=== PATIENT | male | born 1945 | race Caucasian/White ===

== ENCOUNTER 2016-10-09 11:56 | Inpatient (IN) | payer OTHER ==
[~2016-10-09] VITALS: Ht 182.9 cm; Wt 72.3 kg
[2016-10-09 11:56] VITALS: BP 115/72
[~2016-10-09 11:56] MED LIST: ABILIFY10 MG PO; ACIDOPHILUS LA1 EACH PO; ADACEL IM; ALKA-SELTZER AN1 CAP PO; ALOPHEN5 MG PO; AMITIZA24 MCG PO; APAP/HYDROCODON1 T46 PO; ASPIR-LOW81 MG PO; ATIVAN IM; ATIVAN1 MG PO; ATIVAN2 MG/ML PO; B-12 IM; B12,B-12,B 12500 MC1 PO; B12100 MC1 PO; BACTRIM DS 8001 TA1 PO; BACTRIM DS 8001 TAB PO; BENTYL2 MG/ML PO; BISAC-EVAC10 MG R; BISACODYL5 MG PO; BRIN10TA PO; BUSPAR15 MG PO; CALCI-CHEW500 MG PO; CARAFATE1 G1 PO; CARAFATE1 GM PO; CARDIZEM120 MG PO; CEPHULAC10 GM/15 M PO; CEPHULAC10 GM/151 PO; CHLOROPHYLL 3 M1 TAB PO; CIALIS20 MG PO; CIPRO500 MG PO; CIPROFLOXACIN500 MG PO; CLARITIN REDITA10 MG PO; COLACE100 MG PO; COREG6.25 MG PO; CYMBALTA30 MG PO; CYMBALTA60 MG PO; DESYREL100 MG PO; DIOVAN160 M1 PO; DIOVAN320 MG PO; DITROPAN5 MG PO; DULCOLAX10 M1 RC; DULCOLAX10 MG R; DULCOLAX5 M1 PO; DUONEB 3 MG/3 ML3 M1 INH; Duragesic 25 M25 MCG TD; Duragesic 50 M50 MCG TD; EXEL13.31 TD; EXELON4.6 MG/24 TD; FE-TABS325 MG PO; FLEET ADULT ENEM1 EA R; FLUCONAZOLE100 MG PO; FOLIC ACID1 MG PO; GABAPENTIN300 M1 PO; GABAPENTIN300 MG PO; GABAPENTIN800 MG PO; GAVILAX17 GM/Dose PO; GEODON20 M1 IM; GEODON20 MG PO; HALDOL5 MG/M1 IM; HEPTALAC10 GM/15 M PO; HYDROCODONE BIT1 T11 PO; INVANZ1 GM/50 ML IV; KRISTALOSE10 GM/PACK PO; LACTINEX 0.2 MG1 TAB PO; LACTULOSE10 GM/151 PO; LINACLOTIDE PO; LINZESS PO; LOMOTIL 0.025 M1 TA1 PO; LOMOTIL 0.025 M1 TAB PO; LORAZEPAM1 MG IM; LYRICA50 M1 PO; LYRICA50 MG PO; MAALOX ADVANCE148 ML PO; MAPAP325 MG PO; MIRALAX POWDER17 G1 PO; MIRALAX POWDER255 G1 PO; MIRALAX POWDER255 GM PO; MIRALAX17 GM/DOSE PO; MOM30 M1 PO; MOM30 ML PO; MYCOLOG CREAM 115 GM T; MYLANTA SUPREME PO; NAMENDA-28 PO; NAMENDA-7 PO; NEURONTIN800 MG PO; NEXIUM40 MG PO; NUED1CAP PO; OMEPRAZOLE D/R20 MG PO; OMEPRAZOLE DR20 M1 PO; OMEPRAZOLE40 MG PO; ONDANSETRON ODT4 MG PO; ONDANSETRON4 MG PO; OXY IR5 MG PO; OXYCONTIN10 MG PO; PANTOPRAZOLE40 M1 PO; PEPCID40 MG PO; PERCOCET 325 MG1 TA2 PO; PERCOCET 325 MG1 TA4 PO; PREVACID30 M1 PO; PROPAFENONE HC150 MG PO; PROTONIX TR40 M1 PO; PROTONIX TR40 MG PO; PROTONIX20 MG PO; PROTONIX40 MG PO; Percocet 325 MG1 TAB PO; REGLAN5 MG PO; SUNMARK OMEPRAZ20 M1 PO; TRAZADONE HYDR100 MG PO; TUMS 500500 MG PO; TUMS PO; TYLENOL325 M1 PO; ULTRAM50 MG PO; VANCOMYCIN HYD750 MG IV; VICO10300 PO; VICODIN ES 7501 TA1 PO; VITAMIN B-12500 MC3 SL; XANAX0.25 MG PO; ZOFRAN ODT4 MG SL; ZOFRAN4 MG/5 ML IM; ZYPREXA10 MG PO; ZYPREXA5 MG PO; Zofran4 MG PO; [UNRECOGNIZED DRUG - OTHER] RC
[2016-10-09] MEDS ORDERED: NAMENDA10 MG PO (12:20)
[2016-10-09] MEDS ORDERED: MULTIVITAMINS1 EACH PO (12:21)
[2016-10-09] MEDS ORDERED: NORCO 5-325 TA1 EACH PO (12:22)
[2016-10-09] MEDS ORDERED: OLANZAPINE5 MG PO (12:22)
[2016-10-09] MEDS ORDERED: ZYPREXA7.5 M1 PO (12:23)
[2016-10-09] MEDS ORDERED: REMERON15 M2 PO (12:24)
[2016-10-09] MEDS ORDERED: ZANTAC 150150 MG PO (12:24)
[2016-10-09] MEDS ORDERED: Zofran4 MG PO (12:25)
[2016-10-09 13:07] LABS: BASO % 0.3 % (0.0-1.0); HEMATOCRIT 39.1 % (42.0-52.0); HEMOGLOBIN 12.8 g/dl (14.0-18.0); LYMPH # 1.5 10*3/uL (1.3-4.4); LYMPH % 16.4 % (27.0-41.0); MEAN CELL VOLUME 88.3 fl (80.0-94.0); MEAN CORPUSCULAR HGB 28.9 pg (27.0-31.0); MEAN CORPUSCULAR HGB CONC 32.7 g/dl (33.0-37.0); MONO # 0.7 10*3/uL (0.1-1.0); PLATELET COUNT AUTOMATED 157 10*3/uL (130-400); RED BLOOD COUNT 4.43 10*6/uL (4.50-5.90); RED CELL DISTRI WIDTH 15.5 % (0-14.5); WHITE BLOOD COUNT 9.2 10*3/uL (4.8-10.8)
[2016-10-09 13:15] LABS: BILIRUBIN NEGATIVE (NEGATIVE); BLOOD 1+ (NEGATIVE); CLARITY CLOUDY (CLEAR); COLOR YELLOW (YELLOW); GLUCOSE NEGATIVE (NEGATIVE); KETONE TRACE (NEGATIVE); LEUKO ESTERASE 2+ (NEGATIVE); NITRITE POSITIVE (NEGATIVE); PROTEIN TRACE (NEGATIVE); SPECIFIC GRAVITY >= 1.030 (1.005-1.030)
[2016-10-09 13:20] LABS: ALKALINE PHOSPHATASE 192 U/L (45-117); BILIRUBIN, TOTAL 0.9 mg/dl (0.2-1.0); BUN 25 mg/dl (7-24); CARBON DIOXIDE 25 mmol/L (21-32); CHLORIDE 108 mmol/L (98-107); EST GLOM FILT AFRICAN AMERICAN > 60 ml/min; GLUCOSE 94 mg/dL (65-99); POTASSIUM 3.9 mmol/L (3.5-5.1); SGOT/AST 14 IU/L (3-35); SGPT/ALT 13 U/L (12-78); SODIUM 143 mmol/L (136-145); TOTAL PROTEIN 5.8 gm/dL (6.4-8.2)
[2016-10-09 13:26] LABS: BACTERIA 2+; URINE REFLEX COMMENT YES (NO); WBC TNTC wbc/hpf (0-5)
[2016-10-09 16:00] VITALS: BP 115/59; BP 149/72
[2016-10-09 20:00] VITALS: BP 122/85
[2016-10-10] VITALS: BP 124/84
[2016-10-10 07:00] LABS: BASO % 0.5 % (0.0-1.0); HEMATOCRIT 36.4 % (42.0-52.0); HEMOGLOBIN 11.5 g/dl (14.0-18.0); LYMPH # 0.9 10*3/uL (1.3-4.4); LYMPH % 16.4 % (27.0-41.0); MEAN CELL VOLUME 89.7 fl (80.0-94.0); MEAN CORPUSCULAR HGB 28.3 pg (27.0-31.0); MEAN CORPUSCULAR HGB CONC 31.6 g/dl (33.0-37.0); MEAN PLATELET VOLUME 10.3 fl (9.6-12.3); MONO # 0.6 10*3/uL (0.1-1.0); NEUT % 72.7 % (47.0-73.0); PLATELET COUNT AUTOMATED 146 10*3/uL (130-400); RED BLOOD COUNT 4.06 10*6/uL (4.50-5.90); RED CELL DISTRI WIDTH 15.7 % (0-14.5); WHITE BLOOD COUNT 5.5 10*3/uL (4.8-10.8)
[2016-10-10 07:27] LABS: BUN 23 mg/dl (7-24); CARBON DIOXIDE 28 mmol/L (21-32); CHLORIDE 107 mmol/L (98-107); CHOLESTEROL 95 mg/dL (<200); EST GLOM FILT AFRICAN AMERICAN > 60 ml/min; FREE T4 1.08 ng/dl (0.76-1.46); GLUCOSE 93 mg/dL (65-99); HDL CHOLESTEROL 52 mg/dl (40-60); LDL CHOLESTEROL 29 mg/dL (9-159); MAGNESIUM 2.2 mg/dL (1.5-2.1); POTASSIUM 3.6 mmol/L (3.5-5.1); SODIUM 143 mmol/L (136-145); TRIGLYCERIDES 68 mg/dl (<150); VLDL CHOLESTEROL 14 mg/dL (6-40)
[2016-10-10 07:58] LABS: HEMOGLOBIN A1c 5.8 % (4.8-5.6)
[2016-10-10 08:00] VITALS: BP 114/67
[2016-10-10 08:01] LABS: FOLIC ACID 8.09 ng/mL (>5.38)
[2016-10-10 12:00] VITALS: BP 138/76
[2016-10-10 16:00] VITALS: BP 102/64
[2016-10-10 20:00] VITALS: BP 135/77
[2016-10-11] VITALS: BP 122/74
[2016-10-11 06:21] LABS: BASO % 0.5 % (0.0-1.0); LYMPH # 1.1 10*3/uL (1.3-4.4); LYMPH % 27.5 % (27.0-41.0); MEAN CELL VOLUME 89.7 fl (80.0-94.0); MEAN CORPUSCULAR HGB CONC 32.4 g/dl (33.0-37.0); MEAN PLATELET VOLUME 10.1 fl (9.6-12.3); MONO # 0.5 10*3/uL (0.1-1.0); MONO % 11.7 % (3.0-9.0); NEUT # 2.4 10*3/uL (2.3-7.9); NEUT % 59.8 % (47.0-73.0); PLATELET COUNT AUTOMATED 134 10*3/uL (130-400); RED BLOOD COUNT 3.79 10*6/uL (4.50-5.90); RED CELL DISTRI WIDTH 15.6 % (0-14.5)
[2016-10-11 08:00] VITALS: BP 124/81
[2016-10-11 12:00] VITALS: BP 111/71
[2016-10-11 16:00] VITALS: BP 140/72
[2016-10-11 20:00] VITALS: BP 144/75
[2016-10-12] VITALS: BP 142/75
[2016-10-12 06:23] LABS: BASO % 0.7 % (0.0-1.0); HEMATOCRIT 33.3 % (42.0-52.0); HEMOGLOBIN 10.7 g/dl (14.0-18.0); LYMPH # 0.9 10*3/uL (1.3-4.4); LYMPH % 30.7 % (27.0-41.0); MEAN CELL VOLUME 90.2 fl (80.0-94.0); MEAN CORPUSCULAR HGB CONC 32.1 g/dl (33.0-37.0); MONO # 0.4 10*3/uL (0.1-1.0); MONO % 12.7 % (3.0-9.0); NEUT # 1.7 10*3/uL (2.3-7.9); NEUT % 55.6 % (47.0-73.0); PLATELET COUNT AUTOMATED 126 10*3/uL (130-400); RED BLOOD COUNT 3.69 10*6/uL (4.50-5.90); RED CELL DISTRI WIDTH 15.7 % (0-14.5)
[2016-10-12 06:29] LABS: BUN 16 mg/dl (7-24); CARBON DIOXIDE 24 mmol/L (21-32); CHLORIDE 109 mmol/L (98-107); EST GLOM FILT AFRICAN AMERICAN > 60 ml/min; GLUCOSE 99 mg/dL (65-99); POTASSIUM 4.1 mmol/L (3.5-5.1); SODIUM 143 mmol/L (136-145)
[2016-10-12 08:00] VITALS: BP 112/67
[2016-10-12 11:57] VITALS: BP 142/73
[2016-10-12 15:41] VITALS: BP 113/70
[2016-10-12 16:30] LABS: BILIRUBIN 1+ (NEGATIVE); BLOOD NEGATIVE (NEGATIVE); CLARITY SL CLOUDY (CLEAR); COLOR YELLOW (YELLOW); GLUCOSE NEGATIVE (NEGATIVE); KETONE TRACE (NEGATIVE); LEUKO ESTERASE TRACE (NEGATIVE); NITRITE NEGATIVE (NEGATIVE); PH 5.5 (5.0-9.0); PROTEIN TRACE (NEGATIVE); SPECIFIC GRAVITY >= 1.030 (1.005-1.030)
[2016-10-12 16:37] LABS: RBC 0-2 rbc/hpf (0-2)
[2016-10-12 16:38] LABS: BACTERIA 1+; EPITHELIAL CELLS 0-2; MUCOUS TRACE
[2016-10-12 20:00] VITALS: BP 154/88
[2016-10-13] VITALS: BP 114/67
[2016-10-13 07:06] LABS: BASO % 0.3 % (0.0-1.0); HEMATOCRIT 34.5 % (42.0-52.0); MEAN CELL VOLUME 89.8 fl (80.0-94.0); MEAN CORPUSCULAR HGB 28.6 pg (27.0-31.0); MEAN CORPUSCULAR HGB CONC 31.9 g/dl (33.0-37.0); MEAN PLATELET VOLUME 10.3 fl (9.6-12.3); MONO # 0.3 10*3/uL (0.1-1.0); MONO % 11.8 % (3.0-9.0); NEUT # 1.5 10*3/uL (2.3-7.9); NEUT % 51.9 % (47.0-73.0); PLATELET COUNT AUTOMATED 138 10*3/uL (130-400); RED BLOOD COUNT 3.84 10*6/uL (4.50-5.90); RED CELL DISTRI WIDTH 15.4 % (0-14.5); WHITE BLOOD COUNT 2.9 10*3/uL (4.8-10.8)
[2016-10-13 07:53] VITALS: BP 119/68
[2016-10-13 12:00] VITALS: BP 137/67
== END 2016-10-13 12:35 | DRG 698 ==
LOC: ED 11:56 → 4E 15:02 → EDHOLD 15:02 → 4E 15:07
PROVIDERS: Emergency Medicine; Family Medicine; Internal Medicine; Student in an Organized Health Care Education/Training Program
DX: T83.518A Infection and inflammatory reaction due to other urinary catheter, initial encounter (principal); E43 Unspecified severe protein-calorie malnutrition; D61.818 Other pancytopenia; F03.91 Unspecified dementia, unspecified severity, with behavioral disturbance; D69.6 Thrombocytopenia, unspecified; G35 Multiple sclerosis; E83.41 Hypermagnesemia; N39.0 Urinary tract infection, site not specified; Y83.9 Surgical procedure, unspecified as the cause of abnormal reaction of the patient, or of later complication, without mention of misadventure at the time of the procedure; D64.9 Anemia, unspecified; K59.00 Constipation, unspecified; G62.9 Polyneuropathy, unspecified; N31.9 Neuromuscular dysfunction of bladder, unspecified; K21.9 Gastro-esophageal reflux disease without esophagitis; K57.90 Diverticulosis of intestine, part unspecified, without perforation or abscess without bleeding; B96.1 Klebsiella pneumoniae [K. pneumoniae] as the cause of diseases classified elsewhere; B96.5 Pseudomonas (aeruginosa) (mallei) (pseudomallei) as the cause of diseases classified elsewhere; E83.39 Other disorders of phosphorus metabolism; Z88.0 Allergy status to penicillin; Z86.73 Personal history of transient ischemic attack (TIA), and cerebral infarction without residual deficits; Z68.21 Body mass index [BMI] 21.0-21.9, adult; Y92.89 Other specified places as the place of occurrence of the external cause; Z90.3 Acquired absence of stomach [part of]; Z22.322 Carrier or suspected carrier of Methicillin resistant Staphylococcus aureus; Z80.8 Family history of malignant neoplasm of other organs or systems; Z80.1 Family history of malignant neoplasm of trachea, bronchus and lung; Z82.49 Family history of ischemic heart disease and other diseases of the circulatory system; Z90.49 Acquired absence of other specified parts of digestive tract; Z81.8 Family history of other mental and behavioral disorders; Z79.899 Other long term (current) drug therapy

== ENCOUNTER 2016-12-01 17:32 | Inpatient (IN) | payer OTHER ==
[~2016-12-01] VITALS: Ht 182.8 cm; Wt 71.3 kg
--- NOTE | ~2016-12-01 | CON ---
[place], [place] REPORT OF CONSULTATION NAME: FERN DEGROOT [facility] #: [id number] UNIT #: [id number] ROOM: 522 DOCTOR: DIONICIO POLANCO MD BIRTHDATE: [birth year] DOS: 12/02/2016 PULMONARY CONSULTATION, EVALUATION AND MANAGEMENT REASON FOR CONSULTATION: Assess the patient for possibility of diaphragmatic paralysis, pneumonia and atelectasis. CONSULTATION REQUESTING PHYSICIAN: Hospitalist services. HISTORY OF PRESENT ILLNESS: This is a 71-year-old white male patient who has been admitted under care of the hospitalist services on 12/01/2016 for [facility]. The patient was treated at the nursing facility. The patient has developed increased chest congestion with cough. The patient with sputum expectoration. The patient also noted symptoms of confusion as well. Shortness of breath was also described. The patient does not have any symptoms of chest pain or hemoptysis. He denies any symptoms of worsening of the symptoms at this time rather stating reduction in symptoms since yesterday's admission. REVIEW OF SYSTEMS: Limited examination. GENERAL: The patient is complaining of fatigue and tiredness. Denies symptoms of fever or chills. EYES: Denies any burning, redness, or tenderness. EARS, NOSE, THROAT SYMPTOMS: No sore throat, hoarseness, or otalgia. CARDIOVASCULAR: Denies anginal pain, edema or pain of the lower extremities. GASTROINTESTINAL: Denies dysphagia, nausea, vomiting, diarrhea, abdominal pain, hematemesis, or melena. GENITOURINARY: Denies dysuria, suprapubic pain, or hematuria. MUSCULOSKELETAL: Denies acute joint pain, redness, or tenderness. CENTRAL NERVOUS SYSTEM: History of chronic multiple sclerosis, mostly bed-bound. The patient is with limited mobility. PAST MEDICAL HISTORY: 1. History of dementia. 2. Multiple sclerosis. 3. Hypospadias. 4. Gastroesophageal reflux. 5. History of diverticulosis. 6. Behavioral disorder. PAST SURGICAL HISTORY: 1. Hiatal hernia repair. 2. Partial gastrectomy. 3. Cholecystectomy. 4. Tonsillectomy. 5. Suprapubic catheter insertion in the past. He also had history of neurogenic bladder, requiring suprapubic catheter insertion. SOCIAL HISTORY: The patient stated that he is currently . He does not have any children. Denies history of alcohol use, illicit drug use or any tobacco use. He is currently a resident of nursing facility. [place], [place] RE[facility] [id number] UNIT #: [id number] ROOM: 522 DOCTOR: ROJELIO BROWN MD,DIONICIO BIRTHDATE: [birth year] FAMILY HISTORY: The patient's father at the age 72 years from complications of cancer of the lung. The mother at the age of 82 years from complications related to dementia. MEDICATIONS: Listed at the time of admission was the use of calcium carbonate, [place] p.r.n. use, Florastor, Namenda, Remeron, multivitamin, olanzapine, Zyprexa, Lyrica, Zantac, and other p.r.n. medications. DRUG ALLERGIES: Reported allergy to PENICILLINS. PHYSICAL EXAMINATION: GENERAL: This is a 71-year-old male who has been currently resting comfortably on his bed without any distress. Height of 6 feet, weight of 71 kg, BMI 21.3. VITAL SIGNS: Temperature 99.9 degrees Fahrenheit, normal temperature noted since admission. Respiratory rate 18-20, heart rate noted 96-112. The blood pressure was noted at 120/62-106/66. HEENT: Head was atraumatic. Eyes nonicterus. NECK: Supple. CARDIOVASCULAR: Decreased breath sounds noted in the right lower lung. ABDOMEN: Soft, flat, nontender. Bowel sounds present. CENTRAL NERVOUS SYSTEM: The patient was noted with general weakness and fatigue was noted. The patient is with decreased mobility. Limited examination. MUSCULOSKELETAL: No obvious deformities. SKIN: No lesions or rashes. LABORATORY DATA: Lactic acid on admission on 12/01/2016 was 1.1. PT/PTT on 12/01/2016 was noted as normal. CMP of the patient of 12/01/2016 showed BUN 30, creatinine was normal, glucose 130. Troponin yesterday and this morning three sets were normal. CBC was noted with mild anemia, otherwise normal. CMP of the patient, glucose 230, BUN 29, creatinine was normal. Review of the radiology data: The chest x-ray of the patient that was done reviewed. The chest x-ray which was done on 09/21/2016 was one-view chest x-ray at that time. It was noted with elevation of the right hemidiaphragm with possibility of underlying infiltration or atelectasis. Several of the previous chest x-rays of the patient was reviewed. The chest x-ray of the patient that was reviewed with the patient on 09/03/2013 does not show any abnormalities of the diaphragm. The diaphragm was noted appropriately in place. Chest x-ray of the patient that was done on 07/23/2014 also shows a MediPort in place at that time. The MediPort seems to be removed at this time. The CT scan of the chest that was done for this patient on this admission as well as the abdomen and pelvis completed on 12/01/[address] scan of the chest for the patient was noted with basilar areas of atelectasis with area of consolidation in the right middle and the right lower lobe. An additional area of atelectasis in the patient would be considered as well. Patchy infiltration was also noted in the right upper lobe as well as in the left upper lobe. There was no visible significant pleural effusions. Diaphragm seems to be noted at the higher level for the patient than it should be situated at that time. IMPRESSION: [place], [place] REPORT OF CONSULTATION NAME: FERN DEGROOT UNIT #: [id number] ROOM: 522 DOCTOR: ZAY POLANCO MDM BIRTHDATE: [birth year] 1. The patient who has been currently admitted to the hospital is noted with acute pneumonia with symptoms of coughing and chest congestion with history of chronic multiple sclerosis. 2. Rule out right diaphragmatic paralysis as a new finding with further assessment. 3. Chronic anemia for the patient who was also known with history. 4. Mild azotemia noted on admission with carbon dioxide 30, seem to be resolved secondary to volume contraction. 5. Possible exacerbation of chronic obstructive pulmonary disease or bronchial asthma. PLAN OF TREATMENT: 1. Bronchodilator supplementation for the patient to help mobilize secretions. The patient also getting Solu-Medrol intravenous; most likely he may have exacerbation of COPD on admission; at this time, there was no wheezing noted. 2. Rule out right diaphragmatic paralysis. 3. Acute pneumonia with superimposed area of atelectasis; rule out any endobronchial obstruction with mucus plug or other etiologies as well. 4. Bed-bound status for the patient was also noted mostly. PLAN OF MANAGEMENT: Continuation of bronchodilator ordered. Obtain the sputum for Gram stain and culture. Also ordered the sniff test on Sunday to rule out diaphragmatic paralysis. Follow up chest x-ray, PA and lateral view will be done in the morning. Usual care, other supportive therapy, plan of management and care. In addition, treatment changes will be done based on progression of the illness. Thank you for allowing me to participate in the care of this patient. DIONICIO SERRATO MD CM:CONSTR:REPORT OF CONSULTATION 1337 12/02/16 [id number] interface
[2016-12-01 17:32] VITALS: BP 111/73
[~2016-12-01 17:32] MED LIST changes: +MULTIVITAMINS1 EACH PO; +NAMENDA10 MG PO; +NORCO 5-325 TA1 EACH PO; +OLANZAPINE5 MG PO; +REMERON15 M2 PO; +ZANTAC 150150 MG PO; +ZYPREXA7.5 M1 PO
[2016-12-01 18:00] LABS: HEMATOCRIT 35.6 % (42.0-52.0); HEMOGLOBIN 11.4 g/dl (14.0-18.0); MEAN CELL VOLUME 89.7 fl (80.0-94.0); MEAN CORPUSCULAR HGB 28.7 pg (27.0-31.0); MEAN PLATELET VOLUME 9.4 fl (9.6-12.3); PLATELET COUNT AUTOMATED 368 10*3/uL (130-400); RED BLOOD COUNT 3.97 10*6/uL (4.50-5.90); RED CELL DISTRI WIDTH 14.7 % (0-14.5); WHITE BLOOD COUNT 10.2 10*3/uL (4.8-10.8)
[2016-12-01 18:07] LABS: INTERNATIONAL NORM RATIO 1.1 (2.0-3.5); PROTHROMBIN TIME 11.9 SECONDS (9.0-12.4)
[2016-12-01 18:17] LABS: ALBUMIN 1.7 gm/dl (3.1-4.5); ALKALINE PHOSPHATASE 152 U/L (45-117); BILIRUBIN, TOTAL 0.9 mg/dl (0.2-1.0); BUN 30 mg/dl (7-24); CARBON DIOXIDE 24 mmol/L (21-32); CHLORIDE 106 mmol/L (98-107); EST GLOM FILT AFRICAN AMERICAN > 60 ml/min; GLUCOSE 130 mg/dL (65-99); MAGNESIUM 1.9 mg/dL (1.5-2.1); POTASSIUM 4.6 mmol/L (3.5-5.1); SGOT/AST 15 IU/L (3-35); SGPT/ALT 9 U/L (12-78); SODIUM 136 mmol/L (136-145)
[2016-12-01 18:18] LABS: LYMPHOCYTE # 0.3 10*3/uL (1.3-4.4); METAMYELOCYTES 1 % (0-0); MONOCYTE # 0.3 10*3/uL (0.1-1.0); NEUTROPHIL # 9.5 10*3/uL (2.3-7.9); NEUTROPHILS 93 % (47-73); TOTAL CELLS COUNTED 100 #CELLS; TROPONIN I < 0.015 ng/ml (<0.045)
[2016-12-01 18:19] LABS: BURR CELLS FEW; PLATELET SUFFICIENCY NORMAL (NORMAL); POLYCHROMASIA SLIGHT
[2016-12-01 18:34] VITALS: BP 100/66
[2016-12-01 20:00] VITALS: BP 142/67
[2016-12-01 21:20] VITALS: BP 129/78
[2016-12-02] VITALS: BP 109/69
[2016-12-02 04:00] VITALS: BP 119/75
[2016-12-02 06:17] LABS: HEMATOCRIT 31.2 % (42.0-52.0); MEAN CELL VOLUME 89.4 fl (80.0-94.0); MEAN CORPUSCULAR HGB 28.7 pg (27.0-31.0); MEAN CORPUSCULAR HGB CONC 32.1 g/dl (33.0-37.0); MEAN PLATELET VOLUME 9.4 fl (9.6-12.3); RED BLOOD COUNT 3.49 10*6/uL (4.50-5.90); RED CELL DISTRI WIDTH 14.6 % (0-14.5); WHITE BLOOD COUNT 5.6 10*3/uL (4.8-10.8)
[2016-12-02 06:18] LABS: PLATELET COUNT AUTOMATED 229 10*3/uL (130-400)
[2016-12-02 06:46] LABS: ALBUMIN 1.5 gm/dl (3.1-4.5); ALKALINE PHOSPHATASE 135 U/L (45-117); BILIRUBIN, TOTAL 0.5 mg/dl (0.2-1.0); BUN 29 mg/dl (7-24); CARBON DIOXIDE 23 mmol/L (21-32); CHLORIDE 106 mmol/L (98-107); EST GLOM FILT AFRICAN AMERICAN > 60 ml/min; GLUCOSE 230 mg/dL (65-99); MAGNESIUM 1.7 mg/dL (1.5-2.1); POTASSIUM 4.4 mmol/L (3.5-5.1); SGOT/AST 10 IU/L (3-35); SGPT/ALT 9 U/L (12-78); SODIUM 137 mmol/L (136-145); TOTAL PROTEIN 5.6 gm/dL (6.4-8.2)
[2016-12-02 07:30] LABS: ACANTHOCYTES FEW; NEUTROPHIL # 5.6 10*3/uL (2.3-7.9); NEUTROPHILS 100 % (47-73); PLATELET SUFFICIENCY NORMAL (NORMAL); TOTAL CELLS COUNTED 100 #CELLS
[2016-12-02 08:00] VITALS: BP 120/62
[2016-12-02 08:31] LABS: VITAMIN D, 25-HYDROXY 22.1 ng/mL (30-100)
[2016-12-02 12:00] VITALS: BP 145/95
== END 2016-12-02 19:04 | disposition short-term general hospital (02) | DRG 871 ==
LOC: ED 17:32 → EDHOLD 18:44 → 5E 18:44
PROVIDERS: Internal Medicine; Nurse Practitioner Family
DX: A41.9 Sepsis, unspecified organism (principal); J18.9 Pneumonia, unspecified organism; E43 Unspecified severe protein-calorie malnutrition; G35 Multiple sclerosis; D64.9 Anemia, unspecified; G62.9 Polyneuropathy, unspecified; E83.51 Hypocalcemia; R16.0 Hepatomegaly, not elsewhere classified; F03.90 Unspecified dementia, unspecified severity, without behavioral disturbance, psychotic disturbance, mood disturbance, and anxiety; K21.9 Gastro-esophageal reflux disease without esophagitis; F32.9 Major depressive disorder, single episode, unspecified; F91.9 Conduct disorder, unspecified; R73.9 Hyperglycemia, unspecified; K57.90 Diverticulosis of intestine, part unspecified, without perforation or abscess without bleeding; K59.00 Constipation, unspecified; Z88.0 Allergy status to penicillin; Z79.899 Other long term (current) drug therapy; Z90.49 Acquired absence of other specified parts of digestive tract; Z82.49 Family history of ischemic heart disease and other diseases of the circulatory system; Z80.0 Family history of malignant neoplasm of digestive organs; Z80.1 Family history of malignant neoplasm of trachea, bronchus and lung; Z80.8 Family history of malignant neoplasm of other organs or systems; Z82.0 Family history of epilepsy and other diseases of the nervous system; Z87.440 Personal history of urinary (tract) infections; Z86.73 Personal history of transient ischemic attack (TIA), and cerebral infarction without residual deficits; Z74.01 Bed confinement status; Z68.21 Body mass index [BMI] 21.0-21.9, adult